=== PATIENT | male | born 1965 ===

== ENCOUNTER → 2018-03-21 | Outpatient (REF) | LOC: M SMT 11:47 | DX: Z02.71 Encounter for disability determination (principal) ==

== ENCOUNTER → 2020-08-25 | Outpatient (REF) ==
--- NOTE | 2020-08-25 16:08 | REP ---
INDICATION: DDD COMPARISON: None. TECHNIQUE: Four views left elbow. FINDINGS: There is no evidence of acute fracture, dislocation, or intrinsic bone disease.There is mild spurring of the coronoid process. The joint spaces are otherwise unremarkable. There is no definite radiographic evidence of a joint effusion. IMPRESSION: No fracture or dislocation. Mild spurring of the coronoid process. <Electronically signed by Gilberto Cantu > 08/25/20 [id number]
--- NOTE | 2020-08-25 16:10 | REP ---
INDICATION: DDD COMPARISON: None. TECHNIQUE: AP and lateral left forearm. FINDINGS: There is no evidence of acute fracture, dislocation, or intrinsic bone disease.Mild spurring of the coronoid process. IMPRESSION: No fracture or dislocation. There is mild spurring of the coronoid process. <Electronically signed by Gilberto Cantu > 08/25/20 [id number]
--- NOTE | 2020-08-25 16:11 | REP ---
INDICATION: DDD COMPARISON: None. TECHNIQUE: Five views left knee. FINDINGS: There is no evidence of acute fracture, dislocation, or intrinsic bone disease.There is mild medial joint space narrowing and subchondral sclerosis. There is moderate spurring of the lateral patellar facet. There is no radiographic evidence of a joint effusion. IMPRESSION: No fracture or dislocation. Degenerative changes as above. <Electronically signed by Gilberto Cantu > 08/25/20 [id number]
== END ==
LOC: M RAD 14:55
PROVIDERS: ATTEND Internal Medicine
DX: Z02.71 Encounter for disability determination (principal)